=== PATIENT | female | born 1985 | race Caucasian/White ===

== ENCOUNTER → 2020-09-24 | Day surgery (SDC) | payer OTHER ==
[~2020-09-24] MED LIST: ACETAMINOPHEN500 M1 PO; BACLOFEN 10MG T10 MG PO; BIOTIN10 MG PO; CLARITIN10 MG PO; COLACE100 MG PO; DAYQUILL PO; FOLIC ACID1 MG PO; MOTRIN600 MG PO; MULTI FOR HER1 EACH PO; NAPROXEN500 MG PO; OXY-IR 5MG5 MG PO; PRENATAL FORMU1 EACH PO; VITAMIN D325 MC1 PO
[2020-09-24 12:12] LABS: HCG (URINE) SCREEN NEGATIVE (NEGATIVE)
== END | disposition home or self-care (01) ==
LOC: FAS 11:53
PROVIDERS: Anesthesiology
DX: D17.1 Benign lipomatous neoplasm of skin and subcutaneous tissue of trunk (principal); J30.9 Allergic rhinitis, unspecified; F41.9 Anxiety disorder, unspecified; Z20.822 Contact with and (suspected) exposure to COVID-19; Z88.5 Allergy status to narcotic agent; Z98.890 Other specified postprocedural states
CPT/HCPCS: 84703; J0690; J1100; J1885; J2250; J2405; J2704; J2710; J3010; J7120